=== PATIENT | male | born 1965 | race Caucasian/White ===

== ENCOUNTER → 2016-10-22 | Outpatient (CLI) | payer BC ==
[2016-10-22 10:02] LABS: HEMOGLOBIN 14.7 gm/dl (14.0-17.5); RED BLOOD COUNT 4.8 M/UL (4.20-5.50); WHITE BLOOD COUNT 8.7 K/UL (4.5-11.0)
[2016-10-22 10:20] LABS: BUN/CREATININE RATIO 15 (0-10)
== END ==
LOC: LAB 09:01
PROVIDERS: Nurse Practitioner
DX: Z12.5 Encounter for screening for malignant neoplasm of prostate (principal); R31.9 Hematuria, unspecified; E78.5 Hyperlipidemia, unspecified
CPT/HCPCS: 80053; 80061; 84153; 84436; 84443; 84480; 85025